=== PATIENT | female | born 1940 | race Caucasian/White ===

== ENCOUNTER 2018-01-04 20:01 | Emergency (ER) | payer MEDICARE ==
[2018-01-04 20:33] VITALS: TEMP 98.5; O2SAT 97
--- NOTE | 2018-01-04 20:48 | C.PDOC ---
History Of Present Illness The patient presents to the ED for evaluation after she tripped while in the shower earlier today. Patient states she remembers the event and is able to move all extremities without difficulty. Patient's daughter gave her two Tylenol tablets earlier today. She denies loss of consciousness, head injury. Time Seen by Provider: 01/04/18 20:48 Chief Complaint (Nursing): Hip Pain History Per: Patient History/Exam Limitations: no limitations Onset/Duration Of Symptoms: Hrs Current Symptoms Are (Timing): Still Present Severity: Mild Pain Scale Rating Of: 2 Recent travel outside of the [place]: No Additional History Per: Patient Past Medical History Reviewed: Historical Data, Nursing Documentation, Vital Signs Vital Signs: Last Vital Signs Temp 98.5 F 01/04/18 20:27 Pulse 96 H 01/04/18 20:27 Resp 16 01/04/18 20:27 BP 157/76 H 01/04/18 20:27 Pulse Ox 97 01/04/18 21:07 - Medical History PMH: No Chronic Diseases Surgical History: No Surg Hx Family History: States: Unknown Family Hx - Social History Hx Alcohol Use: No Hx Substance Use: No - Immunization History Hx Influenza Vaccination: Yes Hx Pneumococcal Vaccination: Yes Review Of Systems Cardiovascular: Negative for: Chest Pain, Palpitations Respiratory: Negative for: Cough, Shortness of Breath Gastrointestinal: Negative for: Nausea, Vomiting, Abdominal Pain Skin: Negative for: Rash, Lesions, Jaundice, Bruising Physical Exam - Physical Exam Appears: Non-toxic Skin: Warm, Dry Head: Normacephalic Eye(s): bilateral: Normal Inspection Oral Mucosa: Moist Neck: Supple Chest: Symmetrical, Tenderness (to right rib cage region ), No Other (crepitus ) Cardiovascular: Rhythm Regular Respiratory: No Rales, No Rhonchi, No Wheezing Gastrointestinal/Abdominal: Soft, No Tenderness Back: No Vertebral Tenderness, No Paraspinal Tenderness Extremity: Normal ROM (bilateral upper and lower extremities ), No Tenderness, Capillary Refill (less than 2 seconds ), No Deformity Extremity: Bilateral: Atraumatic, No Pedal Edema, Normal Color And Temperature, Normal ROM Pulses: Left Dorsalis Pedis: Normal, Right Dorsalis Pedis: Normal Neurological/Psych: Oriented x3 Gait: Steady ED Course And Treatment O2 Sat by Pulse Oximetry: 97 (on RA) Pulse Ox Interpretation: Normal Progress Note: CT Chest ordered and reviewed. Nima PO given. Reevaluation Time: 22:13 Reassessment Condition: Improved Disposition Counseled Patient/Family Regarding: Studies Performed, Diagnosis, Need For Followup - Disposition Referrals: Russell Garay MD [Medical Doctor] - Disposition: HOME/ ROUTINE Disposition Time: 20:48 Condition: FAIR Instructions: Rib Fracture (DC) Forms: [employer] (Amharic) - Clinical Impression Clinical Impression: Fall, Fracture of rib of right side - Scribe Statement The provider has reviewed the documentation as recorded by the Scribe (Nuzhat Ngo) Provider Attestation: All medical record entries made by the Scribe were at my direction and personally dictated by me. I have reviewed the chart and agree that the record accurately reflects my personal performance of the history, physical exam, medical decision making, and the department course for this patient. I have also personally directed, reviewed, and agree with the discharge instructions and disposition.
[2018-01-04 22:44] VITALS: BP 130/70; PULSE 80; RESP 14
--- NOTE | 2018-01-05 11:35 | CT ---
PROCEDURE: CT Chest without contrast HISTORY: fall, right chest pain COMPARISON: None. TECHNIQUE: Contiguous axial images were obtained through the chest without intravenous contrast enhancement. Sagittal and coronal reconstructions were performed. Radiation dose (DLP): 149.51 mGy-cm. This CT exam was performed using one or more of the following dose reduction techniques: Automated exposure control, adjustment of the mA and/or kV according to patient size, and/or use of iterative reconstruction technique. FINDINGS: LUNGS: Progressive interstitial lung disease, reticulonodular with associated/underlying bullous change. The overall appearance suggests pulmonary fibrosis. MEDIASTINUM: Unremarkable thoracic aorta. No aneurysm. Normal sized heart. Main pulmonary artery unremarkable. No vascular congestion. No lymphadenopathy. PLEURA: No pleural fluid. No pneumothorax. BONES: Acute fractures posterior 10th and 11th ribs. UPPER ABDOMEN: Grossly unremarkable. OTHER FINDINGS: None. IMPRESSION: Nondisplaced posterior right 10th and 11th rib fractures. Progressive interstitial lung disease/pulmonary fibrosis. Concordant results (preliminary interpretation) provided by [facility]. Procedure Completed: 21:38 Preliminary ([facility]) Report: Dictated and Authenticated: 22:08 Final Interpretation: 11:32June 2017.
== END 2018-01-04 22:44 | disposition home or self-care (01) ==
LOC: C.ER 20:01
DX: S22.41XA Multiple fractures of ribs, right side, initial encounter for closed fracture (principal); W18.2XXA Fall in (into) shower or empty bathtub, initial encounter; Y93.E1 Activity, personal bathing and showering; Y92.002 Bathroom of unspecified non-institutional (private) residence as the place of occurrence of the external cause